=== PATIENT | female | born 1975 | race Hispanic/Latino ===

== ENCOUNTER 2019-04-24 08:50 | Outpatient (CLI) | payer OTHER, SELFPAY ==
--- NOTE | ~2019-04-24 | US_ITS ---
US abdomen complete DATE: 04/24/2019 09:25 INDICATION: Abdominal pain TECHNIQUE: Real-time imaging of the abdomen COMPARISON: 11/15/2015 CT abdomen pelvis FINDINGS: The gallbladder is absent, consistent with history of cholecystectomy. No hepatic space-occupying mass lesion is evident. There is incomplete visualization of the pancreas due to overlying bowel gas. The common bile duct measures 5.2 mm, within normal limits. Normal splenic size. No renal mass lesion or hydronephrosis is detected. IMPRESSION: Status post cholecystectomy Incomplete visualization of the pancreas Reviewed, dictated and finalized at [facility]. Reviewed, dictated and finalized at location [facility]. [employer] OPERATOR
== END 2019-04-24 08:51 | disposition home or self-care (01) ==
DX: R10.9 Unspecified abdominal pain (principal); Z90.49 Acquired absence of other specified parts of digestive tract
CPT/HCPCS: 76700

== ENCOUNTER 2021-10-06 09:41 | Outpatient (CLI) | payer OTHER, SELFPAY ==
--- NOTE | ~2021-10-06 | US_ITS ---
US abdomen complete EXAMINATION: US Abdomen Complete INDICATION: Diarrhea PROCEDURE: Realtime High Resolution abdomen ultrasound. COMPARISON: Ultrasound dated 04/24/2019 FINDINGS: Gallbladder is surgically absent. Common bile duct measures 5 mm. Liver echotexture within normal limits without focal mass. Pancreas within normal limits. Pancreati c tail is obscured by bowel gas. Spleen is unremarkeable. Renal echotexture is within normal limits bilaterally without hydronephrosis, contour deforming mass or renal stone. Right kidney measures 12.8 cm. Left kidney measures 10.1 cm. Visualized aspects of the aorta and IVC are within normal limits. Portal vein is patent. No sonograph ic Thornton's sign indicated by the technologist. IMPRESSION: 1: Normal abdominal ultrasound. Reviewed, dictated and finalized at location A.
== END 2021-10-06 09:42 | disposition home or self-care (01) ==
DX: R19.7 Diarrhea, unspecified (principal)
CPT/HCPCS: 76700

== ENCOUNTER 2022-10-30 13:15 | Emergency (ER) | payer OTHER, SELFPAY ==
[2022-10-30 13:41] VITALS: BP 151/64; PULSE 93; RESP 16; TEMP 38; O2SAT 99
--- NOTE | 2022-10-30 14:54 | ED.GENADULT ---
HPI - General Adult General Chief complaint: Upper Respiratory Infection Stated complaint: Sinus/Back Pain Source: patient Mode of arrival: ambulatory Limitations: no limitations History of Present Illness HPI narrative: Patient presents for evaluation of sick symptoms. Symptoms include fever, headache, sore throat, runny nose, tearing from the eyes, nonproductive cough, mild shortness of breath, and diarrhea. symptom onset 3 days ago. She took [id number] cold and flu medication as well some allergy medication. Her has similar symptoms and is also being evaluated here. She is also concerned about pain in her right SI joint with radiation into her right buttock and down the posterior aspect of the right lower extremity. Symptom onset 2 days ago. She cannot identify precipitating cause or injury. History of similar symptoms. She rates her pain 10/10 in severity. No saddle anesthesia. No bladder / bowel incontinence. Related Data Allergies Allergy/AdvReac Type Severity Reaction Status Date / Time No Known Drug Allergies Allergy Unknown Unknown Verified 10/30/22 14:15 Review of Systems Review of Systems: CONSTITUTIONAL: Reports fever. Denies chills. EYES: Reports bilateral eye tearing. Denies visual changes, redness, or discharge. ENT: Reports runny nose and sore throat. CARDIOVASCULAR: Denies chest pain, palpitations, or edema. RESPIRATORY: reports cough and mild shortness of breath. GASTROINTESTINAL: Reports mild diarrhea. Denies abdominal pain, nausea, and vomiting GENITOURINARY: Denies dysuria or hematuria. SKIN: Denies rash or itching. MUSCULOSKELETAL: reports right SI joint pain with radiation into the right buttock and down the posterior aspect the right lower extremity. NEUROLOGIC: Denies headache, numbness, dizziness, or weakness. PSYCHIATRIC: Denies anxiety or depression. [facility] Past Medical History Medical History Sciatica Surgical History Surgical History No pertinent past surgical history Family History Family History Mother Family history non-contributory Social History Social History (Updated 10/30/22 @ 14:59 by LESLIE Wagner, ) Smoking status: Never smoker Substance use: never Living arrangements: with family Gender identity (if verbalized by the patient): Female Sexual Orientation (if Verbalized by the Patient): Straight or Heterosexual Spiritual care concerns: No Exam Narrative: GENERAL: Well-appearing, well-nourished, and in no acute distress. HEAD: Normocephalic, atraumatic. EYES: PERRLA and EOMI. ENT: Nares clear, no epistaxis. there is clear rhinorrhea. Mucous membranes moist. Oropharynx without tonsillar hypertrophy exudate or other lesions. Bilateral TMs pearly walker nonbulging NECK: Supple. No adenopathy or masses. No carotid bruits or JVD CHEST: Clear to auscultation. Cough present on exam. No respiratory distress. No wheezes rales or rhonchi HEART: Regular rate and rhythm. No murmur heard. Normal peripheral pulses. ABDOMEN: Soft, nontender, nondistended, normal active bowel sounds. EXTREMITIES: Normal range of motion. No edema. BACK: Tenderness over the right SI joint. No CVA tenderness. no tenderness in midline or paraspinous muscles bilaterally of the lumbar spine. SKIN: Warm, dry, no rash. NEURO: No focal deficits. Alert and oriented x3. PSYCH: Normal mood and affect. Course Course Emergency Course: This is a 47-year-old female who presented for evaluation of sick symptoms. COVID here positive. Strep negative. Advised supportive measures. In terms of her musculoskeletal pain, this is consistent with sciatica. Will discharge with Medrol Dosepak and Vicodin. Increase hydration. Follow up with primary provider. Go to the ER for
== END 2022-10-30 15:09 | disposition home or self-care (01) ==
PROVIDERS: Emergency Provider Nurse Practitioner
DX: U07.1 COVID-19 (principal); M54.31 Sciatica, right side
CPT/HCPCS: 87081; 87426; 87804; 87880; 99213; C9803; G0463

== ENCOUNTER 2022-11-04 14:40 | Emergency (ER) | payer OTHER, SELFPAY ==
[2022-11-04 14:56] VITALS: BP 119/73; PULSE 74; RESP 16; TEMP 36.3; O2SAT 100
--- NOTE | 2022-11-04 15:36 | ED.URI ---
HPI - URI/Sore Throat General Chief Complaint: Upper Respiratory Infection Stated Complaint: Fatigue/Sore Throat Time Seen by Provider: 11/04/22 15:37 Source: patient, RN notes reviewed and old records reviewed Mode of arrival: ambulatory Limitations: no limitations History of Present Illness HPI Narrative: 47 year old female present to [facility] care with complaints of testing positive for COVID one week ago and still having headaches and cough. Patient reports that she was told to come back and have retesting done one week after testing positive.Patient also reports sore throat continues but no fevers or body aches at this time. Patient reports that she has been taking DayQuil anf NyQuil for her symptoms. Patient reports initial symptoms started on 10/27/2022. Patient reports that cough is frequent and she is not resting well MD elicited complaint: cough, sore throat and other (Headache) Pertinent past history: other (recent tested positive for COVID) Onset (ago): day(s) (10/27/2022) Pain scale (0-10): 4 Able to tolerate fluids by mouth: Yes Treatments prior to arrival: other (DayQuil and NyQuil) Related Data Allergies Allergy/AdvReac Type Severity Reaction Status Date / Time No Known Drug Allergies Allergy Unknown Unknown Verified 10/30/22 14:15 Review of Systems Review of Systems: CONSTITUTIONAL: Denies malaise, chills, sweats, or fever. EYES: Denies visual changes, redness, or discharge. ENT: Reports rhinorrhea, congestion, no sinus pain, no otalgia positive sore throat. CARDIOVASCULAR: Denies chest pain, palpitations, or edema. RESPIRATORY: Reports continued cough.? Denies acute dyspnea. GASTROINTESTINAL: Denies abdominal pain, nausea, vomiting, diarrhea SKIN: Denies rash or itching. MUSCULOSKELETAL: Denies myalgia. NEUROLOGIC: Reports headache. All systems reviewed & are unremarkable except as noted in HPI and below PMFSH Past Medical History Medical History (Updated 11/07/22 @ 07:18 by Selam Ramírez NP) GERD (gastroesophageal reflux disease) Sciatica Surgical History Surgical History (Updated 11/07/22 @ 07:18 by Selam Ramírez NP) Hx of cholecystectomy Family History Family History Mother Family history non-contributory Social History Social History Smoking status: Never smoker Substance use: never Living arrangements: with family Gender identity (if verbalized by the patient): Female Sexual Orientation (if Verbalized by the Patient): Straight or Heterosexual Spiritual care concerns: No Comments At time of signature, agree with nursing past medical, surgical, social and family history. There is no relevant family history pertinent to the presenting complaint Exam Narrative: GENERAL: Well-appearing, well-nourished, and in no acute distress. HEAD: Normocephalic EYES: PERRLA, conjunctivae clear ENT: Nares clear, turbinates edematous and erythematous, clear discharge. Mucous membranes moist. TM pearly walker with dull light reflex bilaterally; no tragal tenderness. Oropharynx erythematous without lesions. Tonsils not enlarged and without exudate, no drooling, no hoarseness, no trismus, uvula midline. post nasal drainage NECK: Supple. No lymphadenopathy CHEST: Clear to auscultation, breath sounds equal. No wheezing, rhonchi, rales, or stridor. No respiratory distress, speaks in full sentences.cough, SAO2 100% on room air HEART: Regular rate and rhythm. No murmur heard. SKIN: Warm, dry, no rash. NEURO: Alert and oriented x3. PSYCH: Normal mood and affect Course Course Emergency Course: Patient is aware of diagnosis, understands and agrees to treatment plan.? Anticipatory guidance given.? Patient agrees to follow-up as directed and is aware of reasons to seek care at the emergency department. Portions of this record may have been created w
== END 2022-11-04 16:17 | disposition home or self-care (01) ==
PROVIDERS: Emergency Provider Registered Nurse; PCP Physician Assistant
DX: U09.9 Post COVID-19 condition, unspecified (principal); R05.3 Chronic cough; K21.9 Gastro-esophageal reflux disease without esophagitis
CPT/HCPCS: 87426; 99213; C9803; G0463

== ENCOUNTER 2023-11-06 12:24 | Emergency (ER) | payer OTHER, SELFPAY ==
[2023-11-06 12:37] VITALS: BP 123/59; PULSE 78; RESP 18; TEMP 36.9; O2SAT 100
[2023-11-06 12:38] VITALS: BP 123/59; PULSE 78; RESP 18; TEMP 36.9; O2SAT 100
--- NOTE | 2023-11-06 12:46 | ED.EYEPROB ---
HPI - Eye Problem General Chief complaint: Skin/Abscess/Foreign Body Stated complaint: Bump On Face/Eyes Irritation Time Seen by Provider: 11/06/23 12:46 Source: patient, RN notes reviewed and old records reviewed Mode of arrival: ambulatory Limitations: no limitations History of Present Illness HPI Narrative: patient presents with complaints of redness and tenderness to forehead above the right eyebrow. She reports that 5 days ago she noticed a small spot above the right eyebrow. States that over the past 5 days it has increased in size and tenderness. She has been putting Neosporin on the site with no improvement. No defined abscess. No drainage. Denies any injury or trauma. No fever, chills, sweats. Related Data Allergies Allergy/AdvReac Type Severity Reaction Status Date / Time No Known Drug Allergies Allergy Unknown Unknown Verified 11/06/23 12:36 Review of Systems Review of Systems: All systems reviewed & are unremarkable except as noted in HPI and below Constitutional: Constitutional: Reports no additional constitutional complaints Eyes: Eyes: Reports as per HPI and Reports no additional eye complaints ENT: Reports system reviewed and no additional complaints, except as documented Cardiovascular: Cardiovascular: Reports no additional cardiovascular complaints Respiratory: Respiratory: Reports no additional respiratory complaints Gastrointestinal: Gastrointestinal: Reports no additional gastrointestinal complaints Integumentary/Breasts: Skin/Breast: Reports system reviewed and no additional complaints, except as docu, Reports as per HPI, Reports erythema, Reports skin pain and Reports skin swelling PMFSH Past Medical History Medical History (Updated 11/07/23 @ 00:00 by Frederic Guthrie) GERD (gastroesophageal reflux disease) Sciatica Surgical History Surgical History Hx of cholecystectomy Family History Family History Mother Family history non-contributory Social History Social History Smoking status: Never smoker Substance use: never Living arrangements: with family Gender identity (if verbalized by the patient): Female Sexual Orientation (if Verbalized by the Patient): Straight or Heterosexual Spiritual care concerns: No Comments At the time of my signature, I reviewed and agree with the nursing past medical, surgical, social, and family history. There is no relevant family history pertinent to the patient complaint. Exam Const: General: cooperative, no acute distress, alert and awake Orientation/consciousness: oriented to person, oriented to place and oriented to time HENMT: Head: normal to inspection Resp: Effort & Inspection: normal respiratory effort and able to speak in complete sentences Auscultation: clear to auscultation bilaterally, no crackles, no rales, no rhonchi and no wheezes Cardio: Palpation: normal PMI Rate: regular rate Rhythm: regular rhythm Heart sounds: S1 normal heart sound present and S2 normal heart sound present Skin: Full body images: 1. 2.5 cm x 2.5 cm Area of erythema, tenderness. No induration, no drainage, no pustule noted. Slightly raised Neuro: General: oriented to person, oriented to place and oriented to time Cranial nerves: Yes CN's II-XII intact bilaterally Psych: Appearance: grossly normal Thought process: Normal thought process present Insight: Good insight present (Psych) Judgement: Good judgement present (Psych) Course Course Level of Care: Express Care Visit Vital Signs Vital signs: Vital Signs Temperature 98.4 F 11/06/23 12:37 Pulse Rate 78 11/06/23 12:37 Respiratory Rate 18 11/06/23 12:37 Blood Pressure 123/59 L 11/06/23 12:37 Pulse Oximetry 100 11/06/23 12:37 Oxygen Delivery Room Air 11/06/23 12:37 Temperature 98.4
== END 2023-11-06 13:00 | disposition home or self-care (01) ==
PROVIDERS: Emergency Provider Nurse Practitioner Family
DX: L03.211 Cellulitis of face (principal); K21.9 Gastro-esophageal reflux disease without esophagitis
CPT/HCPCS: 99213; G0463

== ENCOUNTER 2023-11-08 13:59 | Emergency (ER) | payer OTHER, SELFPAY ==
[2023-11-08 14:32] VITALS: BP 130/70; PULSE 80; RESP 16; TEMP 36.2; O2SAT 100
--- NOTE | 2023-11-08 14:34 | ED.WOUNDLAC ---
HPI - Wound/Laceration General Chief Complaint: Wound/Laceration <Yeimi Ross PA-C - Last Filed: 11/09/23 14:19> Stated Complaint: Forehead Swelling <Yeimi Ross PA-C - Last Filed: 11/09/23 14:19> Time Seen by Provider: 11/08/23 14:34 <Yeimi Ross PA-C - Last Filed: 11/09/23 14:19> Focused HPI: This is a 48-year-old female that presents to the emergency department for a rash to the right side of her forehead present over the last week. She was started on clindamycin by an urgent care with little relief. Reports pain on the right side of her head. Denies fevers or drainage. GENERAL: Well-appearing, well-nourished, and in no acute distress. HEAD: Normocephalic, atraumatic. CHEST: Clear to auscultation. ?No respiratory distress. HEART: Regular rate and rhythm.? SKIN: Red, ulcerating lesions to the right side of the forehead and into the scalp NEURO: ?Alert and oriented x3. Patient screened in triage and initial orders placed.? ?Additional care and disposition to be based upon?diagnostic testing and treatment. <Yeimi Ross PA-C - Last Filed: 11/09/23 14:19> History of Present Illness HPI narrative: I agree with the note/assessment of Yeimi Ross PA-C. <Em Cho APRN - Last Filed: 11/08/23 20:56> Related Data Allergies/Adverse Reactions: Allergies Allergy/AdvReac Type Severity Reaction Status Date / Time No Known Drug Allergies Allergy Unknown Unknown Verified 11/06/23 12:36 <Yeimi Ross PA-C - Last Filed: 11/09/23 14:19> Review of Systems Review of Systems: All systems reviewed & are unremarkable except as noted in HPI and below <Em Cho APRN - Last Filed: 11/08/23 20:56> PMFSH Past Medical History Medical History: Medical History GERD (gastroesophageal reflux disease) Sciatica <Yeimi Ross PA-C - Last Filed: 11/09/23 14:19> Surgical History Surgical History: Surgical History Hx of cholecystectomy <Yeimi Ross PA-C - Last Filed: 11/09/23 14:19> Family History Family History: Family History Mother Family history non-contributory <Yeimi Ross PA-C - Last Filed: 11/09/23 14:19> Social History Social History: Social History Smoking status: Never smoker Substance use: never Living arrangements: with family Gender identity (if verbalized by the patient): Female Sexual Orientation (if Verbalized by the Patient): Straight or Heterosexual Spiritual care concerns: No <Yeimi Ross PA-C - Last Filed: 11/09/23 14:19> Exam Narrative: GENERAL: Well appearing, well-nourished, non-toxic, in no acute distress. HEAD: Normocephalic, atraumatic. [place] rash noted along pt's R forehead that starts above her R lacrimal caruncle. A couple mildly weeping, open lesions are noted close to the R eyebrow. No open lesions up on pt's forehead. NECK: Supple. No adenopathy, no masses. RESPIRATORY: Airway patent, respirations nonlabored. Clear to auscultation bilaterally, no rales, rhonchi, wheezing. CARDIOVASCULAR: Regular rate and rhythm without murmurs, rubs, or gallops. Peripheral pulses 2+ and equal bilaterally. MUSCULOSKELETAL: Moves all extremities. Strength/ROM intact without gross deformities. SKIN: Warm, dry, normal color. [place] rash noted along pt's R forehead that starts above her R lacrimal caruncle. A couple mildly weeping, open lesions are noted close to the R eyebrow. No open lesions up on pt's forehead. NEURO: A&O X3. Speech clear. Cranial nerves II-XII grossly intact. Steady gait. No ataxic movements. <Em Cho APRN - Last Filed: 11/08/23 20:56> Course FULL STACK ENGINEER/PA Physician Supervision Patient's HPI, Exam, and MDM were reviewed and I agreed with th
[2023-11-08] MEDS: HYDROcodone/acetaminophen (*CRX) 5-325 MG TABLET 1 TAB PO ×2 (14:43→20:28)
[2023-11-08 14:59] LABS: Basophils Absolute Auto 0.1 K/mm3 (0.0-0.1); Eosinophils Absolute Auto 0.1 K/mm3 (0-0.3); Eosinophils Percent Auto 2.1 % (0-4.4); Hematocrit 41.6 % (37.0-47.0); Hemoglobin 14.4 g/dL (12.0-15.0); Immature Granulocyte Absolute 0.02 K/mm3 (0.00-0.031); Immature Granulocyte Percent A 0.3 % (0-0.5); Lymphocytes Absolute Auto 2.41 K/mm3 (0.9-3.2); Lymphocytes Percent Auto 35.9 % (18.3-44.2); Mean Corpuscular HGB Conc 34.6 g/dl (32-36); Mean Corpuscular Hemoglobin 31.6 pg (26-34); Mean Corpuscular Volume 91.2 fl (80-100); Mean Platelet Volume 9.9 fl (7.4-10.4); Monocytes Absolute Auto 0.5 K/mm3 (0.1-0.6); Neutrophils Absolute Auto 3.5 K/mm3 (1.3-6.7); Neutrophils Percent Auto 52.7 % (45.5-73.1); Platelet Count Result 267 k/mm3 (150-375); Red Blood Count 4.56 M/mm3 (4.2-5.4); Red Cell Distribution Width 12.1 % (11.5-14.5); White Blood Count 6.7 K/mm3 (4.5-10.0)
[2023-11-08 15:16] LABS: Anion Gap 10 mmol/L (4-12); Blood Urea Nitrogen 14 mg/dL (7-17); CRP 0.6 mg/dL (<1.0); Calcium 9.6 mg/dL (8.4-10.2); Carbon Dioxide 27 mmol/L (22-30); Chloride 100 mmol/L (98-107); Estimated CRCL calculation 94 ml/min; Estimated Glomerular Filt Rate > 60; Glucose 97 mg/dL (65-110); Potassium 4.7 mmol/L (3.4-5.0); Sodium 137 mmol/L (137-145)
[2023-11-08 15:26] LABS: Erythrocyte Sedimentation Rate 22 mm/hr (0-20)
[2023-11-08] MEDS: predniSONE 20 MG TABLET 40 MG PO (18:55)
[2023-11-08] MEDS: ACYCLOVIR 400 MG TABLET 800 MG PO (19:46)
[2023-11-08 21:36] VITALS: BP 118/76; PULSE 84; RESP 18; O2SAT 98
== END 2023-11-08 22:06 | disposition short-term general hospital (02) ==
PROVIDERS: Physician Assistant; Emergency Provider Registered Nurse
DX: B02.39 Other herpes zoster eye disease (principal); B02.8 Zoster with other complications; K21.9 Gastro-esophageal reflux disease without esophagitis
CPT/HCPCS: 36415; 80048; 85025; 85652; 86140; 99283; A9270; J7512

== ENCOUNTER 2024-03-13 12:49 | Emergency (ER) | payer OTHER, SELFPAY ==
[2024-03-13 13:05] VITALS: BP 129/59; PULSE 79; RESP 16; TEMP 36.5; O2SAT 100
--- NOTE | 2024-03-13 13:14 | ED_ITS ---
HPI - URI/Sore Throat General Chief Complaint: Upper Respiratory Infection Stated Complaint: sore throat Time Seen by Provider: 03/13/24 12:52 Source: patient, RN notes reviewed and old records reviewed Mode of arrival: ambulatory Limitations: no limitations History of Present Illness HPI Narrative: Patient presents accompanied by her . Patient is complaining of 1 week of sore throat and runny nose. She denies any fever, chills, sweats. She is also complaining that her feet are cold during this winter. She has been taking [id number] medication for her symptoms with good relief. She den ies any injury or trauma. She voices no other concerns or complaints at this time Related Data Allergies Allergy/AdvReac Type Severity Reaction Status Date / Time No Known Drug Allergies Allergy Unknown Unknown Verified 03/13/24 12:52 Review of Systems Review of Systems: All systems reviewed & are unremarkable except as noted in HPI and below Constitutional: Constitutional: Reports as per HPI and Reports no additional constitutional complaints ENT: Reports system reviewed and no additional complaints, except as documented, Reports as per HPI, Reports nasal congestion, Reports nasal discharge and Reports sore throat Cardiovascular: Cardiovascular: Reports no additional cardiovascular complaints Respiratory: Respiratory: Reports no additional respiratory complaints and Reports cough Gastrointestinal: Gastrointestinal: Reports no additional gastrointestinal complaints Endocrine: Endocrine: Reports cold intolerance [facility] Past Medical History Medical History GERD (gastroesophageal reflux disease) Sciatica Surgical History Surgical History Hx of cholecystectomy Family History Family History Mother Family history non-contributory Social History Social History Smoking status: Never smoker Substance use: never Living arrangements: with family Gender identity (if verbalized by the patient): Female Sexual Orientation (if Verbalized by the Patient): Straight or Heterosexual Spiritual care concerns: No Comments At the time of my signature, I reviewed and agree with the nursing past medical, surgical, social, and family history. There is no relevant family history pertinent to the patient complaint. Exam Const: General: cooperative, no acute distress, alert and awake Orientation/consciousness: oriented to person, oriented to place and oriented to time HENMT: Head: normal to inspection Resp: Effort & Inspection: normal respiratory effort and able to speak in complete sentences Auscultation: clear to auscultation bilaterally, no crackles, no rales, no rhonchi and no wheezes Cardio: Palpation: normal PMI Rate: regular rate Rhythm: regular rhythm Heart sounds: S1 normal heart sound present and S2 normal heart sound present Neuro: General: oriented to person, oriented to place and oriented to time Cranial nerves: Yes CN's II-XII intact bilaterally Psych: Appearance: grossly normal Thought process: Normal thought process present Insight: Good insight present (Psych) Judgement: Good judgement present (Psych) Course Course Level of Care: Express Care Visit Vital Signs Vital signs: Vital Signs Temperature 97.7 F 03/13/24 13:05 Pulse Rate 79 03/13/24 13:05 Respiratory Rate 16 03/13/24 13:05 Blood Pressure 129/59 L 03/13/24 13:05 Pulse Oximetry 100 03/13/24 13:05 Oxygen Delivery Room Air 03/13/24 13:05 Temperature 97.7 F 03/13/24 13:05 Pulse Rate 79 03/13/24 13:05 Respiratory Rate 16 03/13/24 13:05 Blood Pressure 129/59 L 03/13/24 13:05 Pulse Oximetry 100 03/13/24 13:05 Oxygen Delivery Room Air 03/13/24 13:05 Reviewed MDM - URI/Sore Throat MDM Narrative Medical decision making narrative: Reassuring physical exam. Negative strep. Symptoms likely viral in origin, cold feet likely due to coldest weather the season this past week. Supportive care measures discussed. Discharge instructions reviewed with patient, as well as provided in writing per nursing staff. The instructions also include specific and strict return/GO TO THE ER as well as f/u information. All questions have been answered, and the patient deny any further questions with discharge and discharge plan. Some parts of this dictation were generated by voice recognition software and may contain typographical and/or grammatical inaccuracies. Differential Diagnosis Differential diagnosis: Likely upper respiratory infection, viral infection and pharyngitis Medical Records Attestation: I reviewed the patient's medical records. Lab Data Attestation: I reviewed the patient's lab results. Discharge Plan Discharge Clinical Impression: Viral infection Patient Disposition: Home, Self-Care Condition: Stable Instructions: Antibiotic Form, Viral Syndrome (ED) Additional Instructions: Take medications as prescribed. Follow with primary care provider. Emergency department for new or worse symptoms Patient Language: Argentine Prescriptions: New naproxen [Naprosyn] 500 mg tablet 500 mg PO BID PRN (Reason: pain) Qty: 20 0RF benzonatate 200 mg capsule 200 mg PO TID PRN (Reason: cough) Qty: 30 0RF Follow-up/Referrals: UNKNOWN,DOCTOR [Primary Care Provider] - Time of Disposition: 13:33
[2024-03-13 13:39] LABS: EDSTREPNEGPOS1 Negative (Negative)
== END 2024-03-13 13:39 | disposition home or self-care (01) ==
PROVIDERS: Emergency Provider Nurse Practitioner Family
DX: B34.9 Viral infection, unspecified (principal)
CPT/HCPCS: 87081; 87880; 99213; G0463